=== PATIENT | female | born 2000 | race Caucasian/White ===

== ENCOUNTER 2023-12-01 15:45 | Emergency (ER) | payer OTHER, SELFPAY ==
[2023-12-01 15:45] VITALS: BP 117/85; PULSE 143; RESP 16; TEMP 36.4; O2SAT 98; BMI 21.6
--- NOTE | 2023-12-01 16:01 | RAD_ITS ---
STUDY: X-RAY - RIGHT HAND, ATTENTION THIRD FINGER REASON FOR EXAM: Female, 23 years old. injury TECHNIQUE: 3 view(s) of the finger were obtained. COMPARISON: None. FINDINGS: Normal metacarpal head. Normal metacarpophalangeal joint. Normal proximal phalanx. Dorsal dislocation middle phalanx third digit with displaced intra-articular avulsion fracture ventral base of middle phalanx. Normal distal phalanx. Normal proximal interphalangeal joint. Normal distal interphalangeal joint. RAD/Finger(s) Min 2 Views IMPRESSION: Fracture dislocation PIP joint third digit Electronically Signed: Remy Bliss MD at 16:48 EDT ,
--- NOTE | 2023-12-01 16:20 | RAD_ITS ---
STUDY: X-RAY - RIGHT HAND, ATTENTION MIDDLE FINGER REASON FOR EXAM: Female, 23 years old. reduction TECHNIQUE: 3 view(s) of the finger were obtained. COMPARISON: None. FINDINGS: Normal metacarpal head. Normal metacarpophalangeal joint. Normal proximal phalanx. 2 displaced avulsion fracture fragments base of middle phalanx volar to the PIP joint. Normal distal phalanx. Normal proximal interphalangeal joint. Normal distal interphalangeal joint. RAD/Finger(s) Min 2 Views IMPRESSION: Successful reduction but displaced fracture fragments as above. Electronically Signed: Remy Bliss MD at 17:39 EDT ,
--- NOTE | 2023-12-01 16:32 | EDS_ITS ---
HPI <BRIT Guzman - Last Filed: 12/01/23 16:58> History of Present Illness Chief Complaint: Upper Extremity Injury Narrative Narrative: Patient is a 23-year-old female with no significant ankle history presents to the emergency department with a right third finger injury. Patient that she was diving after a ball when the middle finger got caught in the grass. She had deformity to the middle part of her finger and is here for evaluation. Denies any other injury. PFSH <BRIT Guzman - Last Filed: 12/01/23 16:58> [facility] Medical History no medical history Allergy/AdvReac Type Severity Reaction Status Date / Time No Known Allergies Allergy Verified 12/01/23 15:51 Family History no significant family his Surgical History no surgical history Social History Smoking Status: Never smoker ROS <BRIT Guzman - Last Filed: 12/01/23 16:58> ROS ED ROS Narrative Constitutional: Negative for fever, chills, weight loss, weakness Eyes: Negative for vision loss, vision change, double vision ENT: Negative for any sore throat, ear pain, congestion Cardiovascular: Negative for any chest pain, tightness, palpitations Respiratory: Negative for any cough, sputum production, hemoptysis, dyspnea, dyspnea on exertion, orthopnea Gastrointestinal: Negative for any abdominal pain, nausea, vomiting, diarrhea, constipation, blood in stool, blood in vomit : Negative for any urinary frequency, dysuria, retention, blood in urine Muscle skeletal: Negative for any neck pain, back pain. Positive for right middle finger pain Neurological: Negative for any headache, syncope, dizziness Skin: Negative for any rashes, itching, abrasions, lacerations Psychiatric: Negative for any depression, anxiety, stress, suicidal ideation, homicidal ideation Hematologic: Negative for any excessive bruising, easy bleeding EXAM <BRIT Guzman - Last Filed: 12/01/23 16:58> Physical Exam Narrative Exam Narrative: Vital signs reviewed. Extremities: Patient has a deformity to the right middle finger at the PIP joint. It appears to be dislocated. Patient also has slight bleeding from the distal tip of the finger. There is no laceration noted. Neurovascular intact. Neuro: Cranial nerves II through XII intact, no focal neurological deficits. Skin: Clean dry and intact with no rash, purpura, petechiae, vesicles or pustules. Backs/flank: No CVA tenderness, no midline spinal tenderness, no deformity. Psych: Normal mood and affect. No SI, HI or acute psychosis. Const Vital Signs: 12/01/23 15:45 Temperature 97.6 F L Temperature Source Temporal Pulse Rate 143 H Respiratory Rate 16 Blood Pressure 117/85 H Blood Pressure Mean 95 Pulse Ox 98 Oxygen Delivery Method Room Air [facility] <BRIT Guzman - Last Filed: 12/01/23 16:58> [facility] Treatment and Re-Evaluation Narrative: Differential diagnosis includes however is not limited to: Finger dislocation, proximal phalanx fracture, distal phalanx fracture, tendon involvement, subu ngual hematoma Patient appears to be in no obvious distress, patient's vital signs are stable. Presenting the emergency department deformity to the right third finger. Patient did have a deformityPatient's finger had a dorsal dislocation from the distal DIP. This was reduced by the ER attending. Patient's repeat x-ray shows the fracture fragments have also shows that the dislocation has been reduced. Patient will be placed in a finger splint. Patient will follow-up with orthopedics. I did offer the patient pain medicine, she refused. The distal nail does show some trauma however there is no trauma to the nailbed. There is no subungual hematoma. Bleeding is controlled. Patient will follow-up outpatient. <Dr. Mehran Pro, - Last Filed: 12/01/23 17:15> [facility] Treatment and Re-Evaluation Narrative: Differential diagnosis includes however is not limited to: Finger dislocation, proximal phalanx fracture, distal phalanx fracture, tendon involvement, subungual hematoma Patient appears to be in no obvious distress, patient's vital signs are stable. Presenting the emergency department deformity to the right third finger. Patient did have a deformityPatient's finger had a dorsal dislocation from the distal DIP. This was reduced by the ER attending. Patient's repeat x-ray shows the fracture fragments have also shows that the dislocation has been reduced. Patient will be placed in a finger splint. Patient will follow-up with orthopedics. I did offer the patient pain medicine, she refused. The distal nail does show some trauma however there is no trauma to the nailbed. There is no subungual hematoma. Bleeding is controlled. Patient will follow-up outpatient. I have personally performed a face to face assessment of the patient and have reviewed the SOUTH Note. I performed a substantive portion of the visit including all aspects of the following. My thacker findings include: History is 23-year-old female sustained right middle finger injury dislocation while playing softball today. She notes blood coming out from underneath her acrylic nail. She notes deformity at the DIP joint. Exam is there is an obvious dorsal dislocation of the middle phalanx of the right long finger. She is neurovascular intact. There is small amount of blood at the distal tip of the fingernail. Medical Decison Making I asked the patient if she wanted to be digitally block for the reduction which she declines. Recreated the injury and provided trac tion which resulted in successful relocation of the fracture dislocation. My independent interpretation of the preprocedural film is dorsal dislocation with prolonged fractures at the proximal aspect of the middle phalanx. My independent interpretation of the plain films of the finger postreduction is successful reduction with again noted fracture fragments. Concerned she tore the anterior ligament of the DIP joint as its location lies on the postreduction films. She will be placed in AlumaFoam splint. Acrylic nail was taken down shows that the distal [place] nail is bent slightly backwards. She does not wish any nail removal to evaluate the nailbed which I think is reasonable. She is encouraged to trim the fingernail down to it grows out. She is to follow-up with orthopedics Discharge Plan Triage Chief Complaint: Upper Extremity Injury ED Midlevel Provider: Eliud Hooks ED Provider: Mehran Pro Dx/Rx/DC Orders Clinical Impression: Closed dislocation finger, proximal interphalangeal joint, traumatic, Finger fracture Instructions: ED Finger Dislocation, ED Fracture, Finger, Closed Primary Care Provider: Care Physician,No Primary Referrals: Tj Bird DO [Med Staff - Active Staff] - Fidel Montgomery MD [Non-Staff] - Activity Restrictions/Additional Instructions: Use ibuprofen, Tylenol. Keep the finger in the finger splint. You do need to follow-up with orthopedics secondary to the dislocation and fracture. Print Language: Moldovan Disposition Disposition: Home, Self Care Discharge Date/Time: 12/01/23 17:08
[2023-12-01 17:06] VITALS: BP 104/79; PULSE 61; RESP 16; TEMP 36.6; O2SAT 99
== END 2023-12-01 17:08 | disposition home or self-care (01) ==
PROVIDERS: Emergency Provider Emergency Medicine; Visit Provider Emergency Medicine
DX: S62.612A Displaced fracture of proximal phalanx of right middle finger, initial encounter for closed fracture (principal); X58.XXXA Exposure to other specified factors, initial encounter
CPT/HCPCS: 73140; 99283